=== PATIENT | male | born 1995 | race African-American/Black ===

== ENCOUNTER 2024-09-07 04:41 | Emergency (ER) | payer MEDICAID, OTHER ==
[2024-09-07] MEDS: Sodium Chloride 0.9% 1,000 ML IV ONE (05:22)
[2024-09-07] MEDS: Ondansetron 4 MG/2 ML SDV IVPUSH ONE (05:26)
[2024-09-07] MEDS: Ketorolac 30 MG/ML SDV IVPUSH ONE (05:26)
[2024-09-07] MEDS: Acetaminophen 325 MG Tab PO ONE (05:27)
[2024-09-07 05:28] LABS: BASOPHILS ABSOLUTE AUTO 0.1 K/mm3 (0.0-0.2); BASOPHILS PERCENT AUTO 0.6 % (0.0-1.0); EOSINOPHILS ABSOLUTE AUTO 0.1 K/mm3 (0.0-0.4); EOSINOPHILS PERCENT AUTO 0.6 % (0.0-6.0); HEMATOCRIT 48.8 % (42.0-52.0); HEMOGLOBIN 16.7 gm/dl (14.0-18.0); IMMATURE GRAN ABSOLUTE AUTO 0.02 K/mm3 (0.00-0.05); IMMATURE GRAN PERCENT AUTO 0.2 % (0.0-0.4); LYMPHOCYTES ABSOLUTE AUTO 1.6 K/mm3 (1.0-4.8); LYMPHOCYTES PERCENT AUTO 18.4 % (24.0-44.0); MEAN CORPUSCULAR HEMOGLOBIN 28.8 pg (28.0-32.0); MEAN CORPUSCULAR HGB CONC 34.2 g/dl (32.0-36.0); MEAN CORPUSCULAR VOLUME 84.3 fl (83.0-99.0); MEAN PLATELET VOLUME 9.8 fl (9.4-12.4); MONOCYTES PERCENT AUTO 10.9 % (0.0-8.0); NEUTROPHILS PERCENT AUTO 69.3 % (41.0-71.0); PLATELET COUNT,PLT 252 K/mm3 (150-400); RED BLOOD CELL COUNT 5.79 M/mm3 (4.52-5.90); WHITE BLOOD CELL COUNT,WBC 8.68 K/mm3 (3.9-11.3)
[2024-09-07] MEDS: Iopamidol 612 MG/ML 100 ML Bottle IVPUSH ONE (05:33)
[2024-09-07 05:53] LABS: A/G RATIO 0.7 (1-2); ALBUMIN 3.4 g/dl (3.4-5.0); ANION GAP 9.8 (5-15); BILIRUBIN TOTAL 0.4 mg/dL (0.2-1.0); BUN/CREATININE RATIO 11.4 (14-18); CALCIUM 8.9 mg/dL (8.5-10.1); CREATININE 1.4 mg/dL (0.7-1.3); EST CRCL DRUG DOSING (CG) 74.72 mL/min; POTASSIUM,K 3.8 mEq/L (3.5-5.1); PROTEIN TOTAL,TP 8.1 g/dl (6.4-8.2)
[2024-09-07 06:00] LABS: INR 0.97; PROTHROMBIN TIME 10.3 SECONDS (9.7-12.0)
== END 2024-09-07 06:49 | disposition home or self-care (01) ==
LOC: JD.ED 04:41
DX: K40.90 Unilateral inguinal hernia, without obstruction or gangrene, not specified as recurrent (principal); R10.31 Right lower quadrant pain
CPT/HCPCS: 36415; 74177; 76870; 80053; 85025; 85610; 93975; 96361; 96374; 96375; 99284; A9270; J1885; J2405; J7030; Q9967; 99283